=== PATIENT | male | born 1985 | race Caucasian/White ===

== ENCOUNTER 2020-12-12 15:02 | Outpatient (CLI) | payer OTHER, SELFPAY ==
[2020-12-12 15:17] LABS: Basophils Percent Auto 0.5 % (0.2-1.2); Eosinophils Absolute Auto 0.2 K/mm3 (0-0.3); Hematocrit 44.8 % (42.0-52.0); Hemoglobin 15.6 g/dL (14.0-18.0); Immature Granulocyte Absolute 0.02 K/mm3 (0.00-0.031); Immature Granulocyte Percent A 0.3 % (0-0.5); Lymphocytes Absolute Auto 2.78 K/mm3 (0.9-3.2); Mean Corpuscular HGB Conc 34.8 g/dl (32-36); Mean Corpuscular Hemoglobin 33.2 pg (26-34); Mean Corpuscular Volume 95.3 fl (80-100); Mean Platelet Volume 8.7 fl (7.4-10.4); Monocytes Absolute Auto 0.7 K/mm3 (0.1-0.6); Monocytes Percent Auto 8.4 % (2.6-8.5); Neutrophils Absolute Auto 4.3 K/mm3 (1.3-6.7); Neutrophils Percent Auto 53.8 % (45.5-73.1); Platelet Count Result 260 k/mm3 (150-375); Red Cell Distribution Width 12.2 % (11.5-14.5); White Blood Count 7.9 K/mm3 (4.5-10.0)
[2020-12-12 15:30] LABS: Alanine Aminotransferase 26 U/L (4-50); Albumin Level 5.1 g/dL (3.5-5.1); Alkaline Phosphatase 61 U/L (38-126); Anion Gap 7 mmol/L (8-16); Aspartate Amino Transferase 32 U/L (17-59); Bilirubin,Total 0.4 mg/dL (0.2-1.3); Blood Urea Nitrogen 16 mg/dL (9-20); Calcium 10.3 mg/dL (8.4-10.2); Carbon Dioxide 31 mmol/L (22-30); Chloride 102 mmol/L (98-107); Cholesterol 181 mg/dL (0-200); Estimated Glomerular Filt Rate > 60; Glucose 99 mg/dL (75-110); HDL Direct 87 mg/dL; Potassium 4.2 mmol/L (3.4-5.0); Sodium 140 mmol/L (137-145); Triglycerides 81 mg/dL (<150)
[2020-12-12 15:41] LABS: LDL Cholesterol Direct 81 mg/dL
== END 2020-12-12 15:03 | disposition home or self-care (01) ==
PROVIDERS: PCP Internal Medicine; Visit Provider Clinical Nurse Specialist
DX: Z13.228 Encounter for screening for other metabolic disorders (principal); Z13.220 Encounter for screening for lipoid disorders
CPT/HCPCS: 36415; 80053; 80061; 85025

== ENCOUNTER 2021-01-02 16:30 | Outpatient (RCR) | payer OTHER, SELFPAY ==
--- NOTE | 2020-12-10 16:56 | PTOPEVAL ---
PHYSICAL THERAPY EVALUATION AND PLAN OF CARE Thank you for referring Madan Kelly to [facility].? The patient is scheduled to be seen for therapy?1x/week for 4 weeks. Please review, sign, date and return this plan of care JANEEN. I agree with and certify that the following plan of care is medically necessary. Referring Physician Date Attending Provider: Aubrey Sanford, DO Evaluation Musculoskeletal History Hx Fractures Yes: right collar bone Diagnosis right shoulder pain Onset 1month Subjective Information Pain started about a month ago Query Text:As Reported By Patient/ (states initially in the left Family arm, but spread to the right and now is only in the right). States that crossing arms to take a shirt off is painful/ difficult and shoulder feels tight and it pops a lot more. Tries to stretch the arm regularly and takes aleve on occasion. States that he is not sleeping as well, but is not sure it is related to the pain. Self Report Pain Assessment Right Shoulder(s) Reported Pain Level 2 Pain Frequency Acute,Intermittent Lowest Pain Intensity 0 Greatest Pain Intensity 6 Other Pain Aggravating Factors activity and using the arm. Pain Behaviors None Pain Score Pain Score 2: Self Report Interventions Used Interventions Used By Clinicians Exercise,Manual Therapy Techniques Pain Relief Interventions Used By None Patient Upper Extremity Range of Motion Scapular/ Shoulder Range of Motion Right Shoulder Flexion - Active 130 Shoulder Abduction - Active 145 Shoulder Medial Rotation - Active sacrum Query Text:Reach Behind the Back Shoulder Lateral Rotation - Active T4 Query Text:Reach Behind the Head Upper Extremity Muscle Strength Testing Scapular/Shoulder Right Shoulder Flexion Strength 5 Normal Shoulder Abduction Strength 5 Normal Shoulder Medial Rotation Strength 5 Normal Shoulder Lateral Rotation Strength 5 Normal Posture Posture Standing Position Posture Evaluation View Anterior Thoracic Spine Posture Increased Kyphosis Shoulder Posture (L) Rounded,(R) Rounded,(L) Forward,(R) Forward Scapula Posture (L) Protracted,(R) Protracted Additional Posture Comments slumped posture in sitting, but able to correct on command Palpation Assessment Palpat
--- NOTE | 2021-01-06 17:16 | PCPTNOTE ---
Patient did not show up for scheduled appointment this date; unable to leave voicetnil due to not being set up.
--- NOTE | 2021-01-15 16:16 | PCPTNOTE ---
Patient called and cancelled appointment today. Rescheduled for 01/28.
--- NOTE | 2021-01-28 17:55 | PCPTNOTE ---
Patient did not show up for scheduled appointment this date.
--- NOTE | 2021-01-30 13:13 | PCPTNOTE ---
PHYSICAL THERAPY DISCHARGE NOTE Attending Provider: Aubrey Sanford, Patient:Madan Kelly Date of :1985 Patient has not returned for any further treatments since 01/02/2021, therefore he will be discharged at this time. Patient?s initial visit was on 12/10/2020 and had a total of 3 visits and did not attend 3 scheduled visits. Thank you for referring this patient to [facility]. Please review, sign, date and return this discharge summary JANEEN. I have been updated about the patient's current status and I agree with discharge from the above service at this time. Referring Physician Date
== END 2021-01-30 17:27 | disposition home or self-care (01) ==
LOC: ANHPT 16:30
PROVIDERS: PCP Internal Medicine; Visit Provider Internal Medicine
DX: M25.511 Pain in right shoulder (principal)
CPT/HCPCS: 97110; 97140; 97161

== ENCOUNTER 2021-09-09 20:20 | Emergency (ER) | payer OTHER, MEDICAID, SELFPAY ==
[2021-09-09 20:51] VITALS: BP 147/81; PULSE 81; RESP 20; TEMP 36.9; O2SAT 99
--- NOTE | 2021-09-09 22:38 | ED.WOUNDLAC ---
HPI - Wound/Laceration General Chief Complaint: Wound/Laceration Stated Complaint: lac to left middle finger Time Seen by Provider: 09/09/21 22:25 Source: patient History of Present Illness HPI narrative: Patient presents with laceration to the finger. Patient reports he was cutting vegetables look the way and cut his middle finger. He had a hard time controlling bleeding so he came to the ER for evaluation. Denies any focal numbness or weakness. Reports a sharp pain to the injured area that is constant worse with attempting to use his finger, no radiation. Denies any focal numbness or weakness. Reports he received his tetanus shot approximately 4 years ago Related Data Home Medications Medication Instructions Recorded Confirmed naproxen sodium 220 mg capsule 220 mg PO BID PRN 11/19/20 Allergies Allergy/AdvReac Type Severity Reaction Status Date / Time No Known Allergies Allergy Verified 09/09/21 22:25 Review of Systems Review of Systems: CONSTITUTIONAL: Denies fever, chills, or sweats. EYES: Denies visual changes, redness, or discharge. ENT: Denies rhinorrhea, congestion, sore throat, or otalgia. CARDIOVASCULAR: Denies chest pain, palpitations, or edema. RESPIRATORY: Denies cough or dyspnea. GASTROINTESTINAL: Denies abdominal pain, nausea, vomiting, or diarrhea. GENITOURINARY: Denies dysuria or hematuria. SKIN: Denies rash or itching. MUSCULOSKELETAL: Denies back pain, joint pain, or myalgia. NEUROLOGIC: Denies headache, numbness, dizziness, or weakness. PSYCHIATRIC: Denies anxiety or depression. All systems reviewed & are unremarkable except as noted in HPI and below [facility] Past Medical History Medical History (Updated 09/10/21 @ 00:00 by [facility]) Arthritis Headache Sleep disorder Surgical History Surgical History H/O arthroscopic knee surgery rt knee H/O right wrist surgery Tendon repair Family History Family History Father Hypertension Cerebrovascular accident Grandparent Cancer Hypertension Heart disease Social History Social History Smoking packs per day: 0.25 Smoking cigarettes per day: 5.0 Smoking status: Current some day smoker Alcohol intake: current Gender identity (if verbalized by the patient): Male Exam Narrative: GENERAL: Well-appearing, well-nourished, and in no acute distress. HEAD: Normocephalic, atraumatic. EYES: PERRLA and EOMI. ENT: Nares clear, no rhinorrhea or epistaxis. Mucous membranes moist. NECK: Supple. No masses. No JVD EXTREMITIES: Normal range of motion. Near superficial laceration to the third digit left hand no deep space tissue is identified on wound exploration DIP joint range of motion remains intact cap refill is less than 2 seconds sensation intact to light touch SKIN: Warm, dry, no rash. NEURO: No focal deficits. Alert and oriented x3. PSYCH: Normal mood and affect. Course Vital Signs Vital signs: Vital Signs Temperature 36.9 C 09/09/21 20:51 Pulse Rate 81 09/09/21 20:51 Respiratory Rate 20 09/09/21 20:51 Blood Pressure 147/81 H 09/09/21 20:51 Pulse Oximetry 99 09/09/21 20:51 Temperature 36.9 C 09/09/21 20:51 Pulse Rate 88 09/09/21 22:58 Respiratory Rate 17 09/09/21 22:58 Blood Pressure 139/85 09/09/21 22:58 Pulse Oximetry 97 09/09/21 22:58 Procedures Laceration Laceration 1: Date: 09/09/21 Time: 22:31 Site: hand Side (If applicable): left Description: linear Depth: simple, single layer Pre-repair: wound explored and irrigated ====== Skin Level ====== Skin layer closed with: dermabond ====== Subcutaneous Layer ====== ====== Muscle Layer ====== ====== Tendon Layer ====== MDM - Wound/Laceration MDM Narrative Medical decision [place]
[2021-09-09 22:58] VITALS: BP 139/85; PULSE 88; RESP 17; O2SAT 97
== END 2021-09-09 22:59 | disposition home or self-care (01) ==
LOC: ANHED 22:43
PROVIDERS: Emergency Provider Emergency Medicine; PCP Internal Medicine
DX: S61.213A Laceration without foreign body of left middle finger without damage to nail, initial encounter (principal); M19.90 Unspecified osteoarthritis, unspecified site; G47.9 Sleep disorder, unspecified; F17.210 Nicotine dependence, cigarettes, uncomplicated; Y93.G1 Activity, food preparation and clean up; W26.0XXA Contact with knife, initial encounter
CPT/HCPCS: 12001; 99282